=== PATIENT | male | born 1990 | race Caucasian/White ===

== ENCOUNTER 2017-05-31 12:50 | Emergency (ER) | payer OTHER ==
[~2017-05-31] VITALS: Ht 185.4 cm; Wt 76.2 kg
[~2017-05-31 12:50] MED LIST: ATHLETIC FOOT C30 GM TOP; BACTRIM DS TAB1 EACH PO
[2017-05-31] MEDS ORDERED: TRAMADOL 50 MG50 MG PO (13:14)
[2017-05-31] MEDS ORDERED: NAPROSYN500 MG PO (13:14)
[2017-05-31] MEDS ORDERED: ROBAXIN 750 MG750 M1 PO (13:14)
[2017-05-31 13:29] VITALS: BP 124/72
== END 2017-05-31 13:30 | disposition home or self-care (01) ==
LOC: M.ERS 12:50
DX: M54.5 Low back pain (principal)

== ENCOUNTER 2019-07-07 22:05 | Emergency (ER) | payer OTHER ==
[~2019-07-07] VITALS: Ht 180.3 cm; Wt 63.5 kg
[~2019-07-07 22:05] MED LIST changes: +NAPROSYN500 MG PO; +ROBAXIN 750 MG750 M1 PO; +TRAMADOL 50 MG50 MG PO
[2019-07-07 22:39] LABS: ABSOLUTE BASOPHILS 0.1 thou/uL (0.0-0.2); ABSOLUTE EOSINOPHILS 0.2 thou/uL (0.0-0.7); ABSOLUTE LYMPHOCYTES 2.8 thou/uL (0.8-5.3); ABSOLUTE MONOCYTES 0.7 thou/uL (0.0-1.2); ABSOLUTE NEUTROPHILS 3.7 thou/uL (1.6-8.1); BASOPHILS 0.8 %; EOSINOPHILS 2.7 %; MCHC 34.2 g/dL (28.0-37.0); MCV 87.6 fL (80.0-100.0); MONOCYTES 9.5 %; MPV 7.9 fl. (7.2-11.1); NUCLEATED RBCS 0 /100WBC; PLATELET COUNT* 261 thou/uL (150-400); RBC 5.02 mil/uL (4.50-6.00); RDW-CV 13.8 % (10.5-14.5); WBC 7.5 thou/uL (4.0-11.0)
[2019-07-07 22:47] LABS: CALCIUM 9.3 mg/dL (8.5-10.1); CREATININE 0.9 mg/dL (0.6-1.3); POTASSIUM 3.5 mmol/L (3.5-5.1)
[2019-07-07 22:52] LABS: ALBUMIN 4.2 g/dL (3.4-5.0); TOTAL BILIRUBIN 0.8 mg/dL (<0.1-1.0); TOTAL PROTEIN 7.6 g/dL (6.4-8.2)
[2019-07-07 23:00] LABS: ALCOHOL < 10 mg/dL (<10); SALICYLATE < 2.8 mg/dL (2.8-20.0)
[2019-07-07 23:24] LABS: ACETAMINOPHEN < 2 ug/mL (10-30)
[2019-07-08 00:32] VITALS: BP 106/51
--- NOTE | 2019-07-09 13:57 | EKG ---
[place] [address] ELECTROCARDIOGRAM REPORT Name: SHAUN REALY LAINE Room: [facility]#: [id number] Admission: 07/07/19 Attend Phys: Discharge: 07/08/19 Date of : 88 Date of Service: 07/07/192 Report #: [id number] THIS REPORT FOR: cc: MARIOLA - No family physician/PCP FAM - No family physician/PCP Curtis Arias MD [facility] ~ THIS REPORT FOR: //name// [facility] ED Test Date: 2019-07-07 Test Time: 23:22:01 Pat Name: COLTON REAL Department: Room: Gender: M Director Of Infection Control: FRANK : 1990 Requested By: Tien De La Cruz Order Number: [id number] MD: Curtis Arias Measurements Intervals [place] Rate: 81 P: 58 OR: 139 QRS: 58 QRSD: 90 T: 22 QT: 379 QTc: 440 Interpretive Statements Sinus rhythm Baseline wander in lead(s) V3 No previous ECG available for comparison Electronically Signed On 07-08-2019 12:51:36 [employer] by Curtis Arias [email or web address] <ELECTRONICALLY SIGNED> By: Curtis Arias MD, [facility] 07/08/19 [id number] Curtis Arias MD, [facility] /EPI
== END 2019-07-08 00:33 | disposition home or self-care (01) ==
LOC: M.ERS 22:05
PROVIDERS: Family Medicine
DX: T43.211A Poisoning by selective serotonin and norepinephrine reuptake inhibitors, accidental (unintentional), initial encounter (principal); Y92.89 Other specified places as the place of occurrence of the external cause

== ENCOUNTER 2020-04-01 17:33 | Emergency (ER) | payer BC ==
[~2020-04-01] VITALS: Ht 185.4 cm; Wt 81.7 kg
[2020-04-01 17:43] VITALS: BP 126/76
== END 2020-04-01 19:00 | disposition left against medical advice (07) ==
LOC: M.ERS 17:33
DX: M54.2 Cervicalgia (principal); M54.6 Pain in thoracic spine; R20.0 Anesthesia of skin; Z53.21 Procedure and treatment not carried out due to patient leaving prior to being seen by health care provider